=== PATIENT | male | born 1970 | race Caucasian/White ===

== ENCOUNTER → 2024-08-05 13:05 | Outpatient (REF) | payer OTHER, SELFPAY | LOC: HWRAD 13:05 | PROVIDERS: ATTENDING PHYSICIAN Nurse Practitioner | DX: E78.5 Hyperlipidemia, unspecified (principal); I10 Essential (primary) hypertension; E66.9 Obesity, unspecified | CPT/HCPCS: 75571 ==

== ENCOUNTER 2025-02-06 08:26 | Emergency (ER) | payer OTHER, SELFPAY ==
[2025-02-06] VITALS (7 sets, daily range): BP systolic 126–167; BP diastolic 78–103; BMI 38.9
--- NOTE | 2025-02-06 09:29 | ED.GENMED ---
History of Present Illness
General
Chief Complaint: Headache
Source: patient
Exam Limitations: none
Time Seen by Provider: 02/06/25 08:55
History of Present Illness
History of Present Illness:
See MDM
Past History
Past History
ED Past Medical History: None
ED Past Surgical History: None
Social History
Tobacco: Non-smoker
Alcohol: None
Phy Exam
Physical Exam
Physical Exam:
See MDM
Course
Orders/Labs/Results
Orders:
Orders
02/06/25 09:24
Butalb/Acetaminophen/Caffeine [Fioricet] 1 tab PO NOW STA
02/06/25 09:25
EEG Routine Urgent
Reason for Exam: Left arm twitching
Neurology Consult: DR. HUBER
Vital Signs
Initial and Last Documented VS:
Initial Vital Signs
Temp Pulse Resp BP Pulse Ox
98.6 F 77 16 151/88 98
02/06/25 08:30 02/06/25 08:30 02/06/25 08:30 02/06/25 08:30 02/06/25 08:30
Last Documented Vital Signs
Temp Pulse Resp BP Pulse Ox
98.6 F 69 20 152/92 99
02/06/25 09:30 02/06/25 12:00 02/06/25 10:03 02/06/25 12:00 02/06/25 12:00
MDM/Problems Addressed
Differential Diagnosis Includes:
Note:
CHIEF COMPLAINT(S)
Severe headaches with left-sided pain and swelling of the left hand.
HISTORY OF PRESENT ILLNESS
The patient is a 54-year-old male who presented with severe headaches that began a couple of Wednesdays ago. These headaches were described as massive, with shooting, pulsating pains extending down the left side of the body. The patient, who had
never experienced a headache before, initially sought treatment at an emergency room in [place] after fearing a cardiovascular event. Diagnostic tests, including electrocardiogram, blood work, and computed tomography scans of the head and neck,
were conducted, revealing a possible sinus infection or migraine headaches. The patient was discharged and prescribed medications, likely including a steroid, and advised to follow up.
Despite the initial treatment, the patient continued to experience intense headaches described as gripping in nature, along with swelling in the left hand, which led to another emergency visit at [facility]. During this visit, the
patient spent 30 hours in the emergency room, received another CT scan, and attempted an MRI that was not completed due to claustrophobia. A neurology oracle application consultant suggested migraine or tension headaches and prescribed medications including gabapentin
and indomethacin for symptom management. However, the patient experienced hand swelling, potentially as a reaction either from medication or IV access. A sonogram ruled out blood clots.
The patients symptoms persist, with headaches becoming worse over the weekend and continuing despite ongoing medication therapy. The patient reports neck tenderness, describing the headache as originating from this area. Previous surgical history
includes back surgery performed approximately 30 years ago.
After reviewing past treatment and in the context of the patients persistent symptoms, a potential plan discussed involves evaluation by EEG to rule out atypical seizures and trial of a different medication, Fioricet, for migraine management.
PAST MEDICAL AND SURGICAL HISTORY
History of back surgery approximately 30 years ago.
EXTERNAL RECORDS REVIEWED
Records from prior ER visits, including results from CT scans, were reviewed and indicated no significant findings suggestive of acute intracranial pathology. This includes a CT angiogram that was negative for aneurysms.
MEDICATIONS
The patient is currently taking Cefdinir, Gabapentin, and Indomethacin. Valproic Acid was administered previously but caused hand swelling. The patient plans to trial Fioricet under the current plan.
REVIEW OF SYSTEMS
- Neurological: Severe headaches, primarily left-sided. Reported neck tenderness.
- Musculoskeletal: Swelling and involuntary twitching in the left hand.
- Respiratory: No respiratory complaints reported.
PHYSICAL EXAM
General: Alert, no acute distress.
Skin: Warm, dry.
Head: Normocephalic, atraumatic. No tenderness to palpation of temporal arteries
Neck: supple, trachea midline.
Eyes, Ears, Nose, Mouth, and Throat: Oral mucosa moist.
Cardiovascular: No signs of cyanosis
Respiratory: Respirations are non-labored.
Abdomen: Non-distended
Musculoskeletal: No deformities
Neurological: No focal neurological deficit observed. Patient moving both hands without difficulty. Muscle strength appears to be intact. Intermittent twitching noted to left arm
Psychiatric: Cooperative, appropriate mood and affect.
PROBLEM LIST
Acute Problems:
- Severe headaches with left-sided pain.
- Swelling and twitching of the left hand.
Chronic Problems:
- History of back surgery.
PLAN
- Perform an EEG to rule out seizure activity.
- Trial Fioricet for management of migraine headache symptoms.
- Continue monitoring for any progression of symptoms or new symptoms, particularly relating to the neurological examination.
DIFFERENTIAL DIAGNOSIS
The Differential Diagnosis includes, in no particular order and is not limited to:
- Migraine headaches
- Tension headaches
- Cervicogenic headache
- Radiculopathy
- Peripheral neuropathy
- Vascular headache such as temporal arteritis
- Cervical spondylosis with possible root compression
- Seizure disorder
- Medication-induced headache
- Sinusitis and related headache
02/06/25 - 11:02
Patient reports significant improvement in teeth discomfort. Currently connected to EEG monitor; awaiting results for further evaluation.
SUMMARY OF ENCOUNTER
The patient was seen in the emergency department for severe headaches with left-sided pain and swelling of the left hand. The EEG results indicated no seizure-like activity. The patient�s headache has shown significant improvement with the current
management plan. Based on the evaluation and discussions, the patients condition may likely be due to muscle spasms, although radiculopathy was also considered. An outpatient MRI was discussed but deferred for evaluation by the primary care
physician.
DISPOSITION
Discharge.
ASSESSMENT
The patient exhibits headache improvement, with negative EEG findings for seizure-like activity. Muscle spasm is strongly suspected, with possible radiculopathy to be evaluated further in an outpatient setting.
PLAN
Prescribe Fioricet for further migraine management. Prescribe diclofenac sodium for pain relief, possibly related to muscle spasm. Continue to monitor symptoms and follow up with the primary care physician for further evaluation, especially
regarding radiculopathy and consideration of an MRI.
PATIENT EDUCATION AND COUNSELING
The patient was informed that their headaches have improved considerably and discussed the potential for muscle spasms contributing to symptoms. They were advised on the medications prescribed and encouraged to follow up with their primary care
physician for further investigation of potential radiculopathy and consideration of an MRI.
FOLLOW-UP INSTRUCTIONS
The patient was instructed to follow up with their primary care doctor for further evaluation of radiculopathy and to consider an MRI.
MEDICATION RECONCILIATION
Prescriptions provided include Fioricet for migraine management and diclofenac sodium for pain relief.
MEDICAL DECISION MAKING
1. Number and Complexity of Problems Addressed: Chronic conditions affecting care include the history of back surgery approximately 30 years ago, severe headaches with left-sided pain, and swelling of the left hand. Differential diagnoses considered
were migraine headaches, tension headaches, cervicogenic headache, radiculopathy, peripheral neuropathy, vascular headache such as temporal arteritis, cervical spondylosis with possible root compression, seizure disorder, medication-induced
headache, and sinusitis.
2. Data:
Category 2: External records were reviewed, which included EEG results indicating no seizure activity.
3. Risk: Prescription medication was prescribed for continued management of symptoms, notably Fioricet and diclofenac sodium.
DIAGNOSIS
- Muscle spasm, possibly contributing to headaches (G44.209).
- Migraine improvement, primarily managed with prescribed medications (G43.909).
- Swelling and twitching in the left hand, possibly related to radiculopathy to be evaluated (R60.9, G56.90 for unspecified radiculopathy).
*Pulse Oximetry
SaO2: 98
Oxygen Mode of Delivery: Room air
Patient hypoxic: no
*Critical Care Note
Total Time (30-74mins, 75-104mins- exclusive of procedures): Not Applicable
ED Attending Note
-
Portions of this chart may have been created with voice recognition software.� Occasional wrong word or��sound alike� substitutions may have occurred due to the inherent limitations of voice recognition software.
Discharge Plan
Departure
Patient Disposition: Home (Routine Discharge)
Date of Disposition: 02/06/25
Time of Disposition: 12:09
Patient with high blood pressure during this ER visit?: Yes
Discharge Problem:
Migraine
Instructions: Migraines (DC), BLOOD PRESSURE
Prescriptions:
New
diclofenac sodium 75 mg tablet,delayed release (DR/EC)
75 mg PO BID PRN (Reason: Pain) Qty: 20 0RF
atqtbfontx-knvgxokusrymg-squp [Fioricet] 50-300-40 mg capsule
1 cap PO TID PRN (Reason: headache) Qty: 20 0RF
Referrals:
Shannan Fuentes CRNP [Family Provider]
Activity Restrictions/Additional Instructions:
Please return for any worsening symptoms.
You may return at any time if you have further concerns.
Please follow up with your doctor at the first available appointment, preferably this week. Please discuss whether or not to go forward with an MRI of your neck to further evaluate your left arm discomfort.
Please take the diclofenac sodium twice a day for the next few days. Please take the Fioricet up to 3 times a day as needed for headache.
Thank you for choosing [facility].
Interventions
Interventions:
*Risk Screen - Suicide Last Done: 02/06/25 08:30
*General Assessment Last Done: 02/06/25 09:30
*Neglect/Abuse Screening Last Done: 02/06/25 08:30
*ED- Fall Risk Assessment Last Done: 02/06/25 09:30
*ED COVID-19 Vaccine History Last Done: 02/06/25 09:30
ED- Neurological Assessment Last Done: 02/06/25 09:30
Discharge Date and Time
Print Language: MEXICAN
[2025-02-06] MEDS: FIORICET 1 TAB PO (09:52)
--- NOTE | 2025-02-06 11:36 | EEG.RPT ---
Electroencephalogram Report
Recording
Date of EE02/06/25
Type of EEG: Routine
Length of EEG recordin minutes
Done with Video Recording: Yes
Patient Status: Emergency Room
Recording Conditions: Awake and Drowsy
Hyperventilation Performed: No
Photic Stimulation Performed: Yes
Report
LESS THAN 1 HOUR EEG INTERPRETATION:
Unremarkable EEG for age
CLINICAL CORRELATION:
A normal EEG does not rule out a diagnosis of epilepsy. If clinical suspicion for seizure persists, a prolonged recording may be warranted.
Clinical correlation is advised.
METHODS:
A 21 channel digitized electroencephalogram (EEG) was performed using the 10/20 international system of electrode placement and one-lead of ECG recorded. The [employer] quantitative EEG system was utilized.
ELECTROENCEPHALOGRAPHER IMPRESSION(S):
Quality of study
Good
Background
There was an unremarkable anterior-posterior voltage gradient of alpha frequency.
With eye opening the background activity changed to a low voltage mixture of frequencies.
There were no significant asymmetries of background activity noted.
Sleep
Drowsiness present
Photic Stimulation
No activation
ECG
Normal sinus rhythm
== END 2025-02-06 12:54 | disposition home or self-care (01) ==
LOC: EMR 08:26
PROVIDERS: EMERGENCY PHYSICIAN Student in an Organized Health Care Education/Training Program; FAMILY PHYSICIAN Nurse Practitioner
DX: G43.909 Migraine, unspecified, not intractable, without status migrainosus (principal)
CPT/HCPCS: 99284; 95816

== ENCOUNTER 2025-02-25 23:14 | Observation (INO) | payer OTHER, SELFPAY ==
[2025-02-25 18:15] VITALS: BP 157/86
[2025-02-25 19:15] VITALS: BP 139/79; BMI 37.4
--- NOTE | 2025-02-25 19:45 | ED.GENMED ---
History of Present Illness
General
Chief Complaint: Swelling
Source: patient
Exam Limitations: none
Time Seen by Provider: 02/25/25 19:26
History of Present Illness
History of Present Illness:
Patient presents with swelling and slight tightness of the left leg. Started 2 days ago with the pain in his left hamstring. This was followed by swelling which he noted later in the day. Has been swollen for the weekend. He was able [place] go to
[place] and walk about 12 miles per the patient. However concerned about the tightness and swelling. No chest pain or shortness of breath. Recent evaluation here and at other facilities for headaches. He has had multiple CT CTAs
evaluations by neurology with no apparent serious etiology found. These have been improving.
Past History
Past History
ED Past Medical History: HTN and NIDDM
ED Past Surgical History: Orthopedic
Social History
Tobacco: Non-smoker
Alcohol: None
Phy Exam
Physical Exam
Physical Exam:
GENERAL: Alert and oriented in no apparent distress
CARDIAC: Regular rate and rhythm
LUNGS: No respiratory distress
ABDOMEN: Soft, without focal tenderness or distention. Reducible periumbilical hernia
NEUROLOGICAL: Alert and oriented , grossly non-focal
SKIN: Warm and dry, no rash or lesion, no discoloration, skin intact.
MUSCULOSKELETAL: Moderate edema mostly below the knee on the left. Knee appears stable. No warmth or erythema. No cord. No calf tenderness. Thigh appears normal. Joints are normal. Good distal pulses and color
PSYCH: Normal and appropriate interaction.
Scores
Heart Failure Risk
Heart Failure Risk Score: Not Applicable
Course
Orders/Labs/Results
Orders:
Orders
02/25/25 18:18
US Periph Venous LOWER Ext LT Urgent
Comment:
Reason For Exam: swelling
02/25/25 21:13
IV Insert/Care/Rem.- Treatment PRN
02/25/25 21:38
Basic Metabolic Panel Urgent
Complete Blood Count/With Diff Urgent
PTT Urgent
Prothrombin Time Urgent
02/25/25 22:09
Heparin 10,000 units IV NOW STA
Nursing to Place Non Medication Order As Directed
Physician Order: PTT 6 hours after initial start of Heparin infusion
02/25/25 22:15
Heparin 20269 Units/250 ml 25,000 units in 250 ml IV PER PROTOCOL
Weight to be used for heparin protocol in kilograms (kg):: 128.6
Protocol:: DVT/PE
PTT Goal Range to be used:: PTT 73 to 111 seconds
Order type:: Initial
INITIAL Infusion Dose (UNITS/KG/hr) & then follow protocol:: 18 units/kg/hr
Infusion Dose in UNITS/hr & then follow protocol (UNITS/hr):: 2,000
INFUSION RATE in mL/hr & then follow protocol (mL/hr):: 20
For DVT/PE algorithm, re-bolus for low PTT?: Yes
PTT less than or equal to 64 seconds:: Re-bolus 80 units/kg (max 10,000units). Increase by 500 units/hr
(+ 5mL/hr)
PTT 64.1 to 72.9 seconds:: Re-bolus 40 units/kg (max 5,000 units). Increase by 300 units/hr
(+ 3mL/hr)
PTT 73 to 111 seconds:: Target Range. No change in rate.
PTT 111.1 to 130.9 seconds:: Decrease rate by 300 units/hr (- 3 mL/hr)
PTT 131 to 199.9 seconds:: HOLD for 1 hr. Then decrease by 400 units/hr (- 4mL/hr)
PTT greater than or equal to 200 seconds:: HOLD for 2 hrs & Notify Provider. Then decrease by 500 units/hr
(- 5mL/hr)
Lab follow-up:: Each change, PTT q6h until 2 consecutive are therapeutic. Then
PTT daily.
02/25/25 22:24
Heparin 10,000 units IV PRN PRN
Heparin 5,000 units IV PRN PRN
Abnormal Lab Results
02/25/25
21:38
RBC 3.67 L 10^6/uL
(4.70-6.10)
Hgb 11.3 L g/dL
(13.0-18.0)
Hct 34.0 L %
(39.0-52.0)
PT 15.8 H Sec
(11.4-14.6)
Chloride 109 H mmol/L
(98-107)
BUN 35 H mg/dl
(9-20)
Glucose 110 H mg/dl
(70-99)
02/25/25 21:38
02/25/25 21:38
Vital Signs
Initial and Last Documented VS:
Initial Vital Signs
Temp Pulse Resp BP Pulse Ox
97.5 F 97 18 157/86 98
02/25/25 18:15 02/25/25 18:15 02/25/25 18:15 02/25/25 18:15 02/25/25 18:15
Last Documented Vital Signs
Temp Pulse Resp BP Pulse Ox
97.5 F 86 15 128/75 97
02/25/25 18:15 02/25/25 21:17 02/25/25 21:17 02/25/25 20:00 02/25/25 21:17
MDM/Problems Addressed
Differential Diagnosis Includes:
Previous records reviewed. Clinically stable and nontoxic. Likely either DVT versus Norwood's cyst. Nothing to support an infectious issue. The fact that this is left-sided I think is a coincidence compared to his recent headaches and neurologic
issues. ReSound pending
*Radiology
Radiology exam reviewed: radiology read reviewed (DVT left lower extremity)
*Pulse Oximetry
SaO2: 98
Oxygen Mode of Delivery: Room air
Patient hypoxic: no
*Critical Care Note
Total Time (30-74mins, 75-104mins- exclusive of procedures): Not Applicable
Update Note
Update Note:
Patient with a occlusive DVT left lower extremity. In addition has had ongoing neurologic symptoms for the last month of headaches some left arm symptoms. He had an ultrasound of left arm done for swelling that was transient. I cannot put these
issues together and they are not a contraindication anticoagulation however somewhat of a coincidence if they are not somehow related. Given these issues we will admit the patient for heparin and further workup
ED Attending Note
-
Portions of this chart may have been created with voice recognition software.� Occasional wrong word or��sound alike� substitutions may have occurred due to the inherent limitations of voice recognition software.
Discharge Plan
Departure
Patient Disposition: Admit
Date of Disposition: 02/25/25
Time of Disposition: 22:11
Presentation/result/management discussed w/ accepting MD/DO: Hospitalist
Discharge Problem:
Left lower extremity DVT, Ongoing headaches
Prescriptions:
No Action
atorvastatin 40 mg Tablet
40 mg PO DAILY
glipizide 10 mg Tablet Extended Release 24hr
10 mg PO DAILY
lisinopril 20 mg Tablet
20 mg PO DAILY
pioglitazone 45 mg Tablet
45 mg PO DAILY
amlodipine 5 mg Tablet
5 mg PO DAILY
metformin 1,000 mg Tablet
1,000 mg PO BID
metoprolol tartrate 25 mg Tablet
25 mg PO DAILY
Mounjaro 7.5 mg/0.5 mL Pen Injector
7.5 mg SC QWEEK
Referrals:
Shannan Fuentes CRNP [Family Provider]
Interventions
Interventions:
*Risk Screen - Suicide Last Done: 02/25/25 18:15
*General Assessment Last Done: 02/25/25 18:15
*Neglect/Abuse Screening Last Done: 02/25/25 19:17
*ED COVID-19 Vaccine History Last Done: 02/25/25 18:15
ED- Cardiac Assessment Last Done: 02/25/25 19:17
ED- Pulmonary Assessment Last Done: 02/25/25 19:17
ED-Skin Assessment Last Done: 02/25/25 19:17
Discharge Date and Time
Print Language: CZECH
[2025-02-25 20:00] VITALS: BP 128/75
[2025-02-25 21:50] LABS: Hematocrit 34.0 % (39.0-52.0); Hemoglobin 11.3 g/dL (13.0-18.0); Mean Corp Hgb Conc. 33.2 g/dL (33.0-37.0); Mean Corpuscular Volume 92.6 fL (80.0-94.0); Nucleated Red Blood Cells % 0 % (-); Platelet Count 145 10^3/uL (130-400); Red Cell Dist. Width 12.6 % (11.5-14.5)
[2025-02-25 21:57] LABS: INR 1.23; PT 15.8 Sec (11.4-14.6)
[2025-02-25 21:58] LABS: APTT 34.4 Sec (23.4-35.0)
[2025-02-25 22:00] VITALS: BP 147/84
[2025-02-25 22:16] LABS: Blood Urea Nitrogen 35 mg/dl (9-20); Calcium 9.2 mg/dl (8.4-10.2); Carbon Dioxide 26 mmol/L (22-30); Chloride 109 mmol/L (98-107); Estimated Creatinine Clearance 89 ml/min; Glucose 110 mg/dl (70-99); Potassium 4.1 mmol/L (3.5-5.1); Sodium 140 mmol/L (135-145); eGFR > 60.00
--- NOTE | 2025-02-25 22:17 | HPS.HSE ---
Family Physician
-
Family Physician: RE Andersen
Chief Complaint
-
Left lower extremity swelling
History of Present Illness
This is a 54-year-old male with past medical history significant for the, hypertension, hyperlipidemia presenting to the emergency department with left lower extremity swelling.
Patient reported that he had some left-sided hamstring discomfort on Thursday. The following morning he noticed the swelling of his left lower extremity. Did go up with family and when he came back he noticed that the swelling has gotten worse and
he continued to have discomfort in his left lower extremity. Again reports mild numbness. He also reports mild bilateral feet tingling which has been present prior. He denies any acute injuries. Patient reported that he had a plane flight to
[place] about a month ago which was [address] He denies any prior history of blood clots. He reports family history of aneurysm in second-degree relative as well as a brain tumor in a second-degree relative.
Patient reported that for the last 1 month he has been having a headache which is left-sided and associated with shooting sensation down the left side of his body as well as some tingling in his hand. He was initially treated for migraine headaches
but is now currently on analgesic for tension headache. Patient reports that the headache is much improved compared to his initial presentation a month ago but is still present.
ER workup which included CT of the head with CT angio of the head and neck which shows no occlusive disease. There was no aneurysm or dissection. He failed an MRI due to anxiety but he remains very anxious due to recent headache and now dvt.
In the emergency department he was afebrile, blood pressure was 130/75 with a pulse rate of 56 and was satting at 7% on room air. CBC was normal. Electrolytes BUN/creatinine were in the normal range.
Ultrasound of the lower extremity shows occlusive DVT with thrombus extending contiguously from the mid left femoral vein through the popliteal vein and also involving the posterior tibial and peroneal veins.
Medical History
Past Medical History
Past Medical History: Reports HTN, Hypercholesterolemia and NIDDM
Past Surgical History: Reports Orthopedic (remote spine surgery)
Social History
Tobacco: Non-smoker
Alcohol: None
Drug: None
Living: With Family
Employment: Employed
Family History
Family History: Not pertinent
Allergies / Home Medications
Allergies reflects when Allergies were last updated in [facility].
Home Medications with original date entered in [facility]
Allergy/Medication List:
Allergies
Allergy/AdvReac Type Severity Reaction Status Date / Time
No Known Allergies Allergy Verified 02/25/25 18:18
Home Medications
amlodipine 5 mg tablet 5 mg PO DAILY 02/25/25
atorvastatin 40 mg tablet 40 mg PO DAILY 02/25/25
glipizide 10 mg tablet, extended release 24 hr 10 mg PO DAILY 02/25/25
lisinopril 20 mg tablet 20 mg PO DAILY 02/25/25
metformin 1,000 mg tablet 1,000 mg PO BID 02/25/25
metoprolol tartrate 25 mg tablet 25 mg PO DAILY 02/25/25
pioglitazone 45 mg tablet 45 mg PO DAILY 02/25/25
tirzepatide 7.5 mg/0.5 mL subcutaneous pen injector (Mounjaro) 7.5 mg SC QWEEK 02/25/25
Review of Systems
-
History Source: Patient
Constitutional: Reports No Symptoms
EENT: Reports No Symptoms
Respiratory: Reports No Symptoms
Cardiac: Reports No Symptoms
Abdomen/GI: Reports No Symptoms
: Reports No Symptoms
Musculoskeletal: Reports No Symptoms
Skin: Reports No Symptoms
Neurological: Reports Headache
Endocrine: Reports No Symptoms
Hematologic/Lymphatic: Reports No Symptoms
Psych: Reports No Symptoms
Physical Exam
Vital Signs
Vital Signs
Temp Pulse Resp BP Pulse Ox
97.5 F 86 15 128/75 97
02/25/25 18:15 02/25/25 21:17 02/25/25 21:17 02/25/25 20:00 02/25/25 21:17
Physical Exam
General: Well Developed, Well Nourished and No Apparent Distress
HEENT: NormoCephalic, Moist mucous membranes and Atraumatic
Respiratory: Clear
Cardiac: S1/S2 and Regular Rhythm; No Murmur or Rub
GI: Soft, Non Tender, Non Distended and Normal Bowel Sounds; No Organomegaly
Rectal: Deferred by Provider
Musculoskeletal: No Clubbing, No Cyanosis and Edema, Left Lower Extremity
Skin: No Rash
Neuro: AO x 3 and Nonfocal/grossly intact
Laboratory Results
-
02/25/25 21:38
02/25/25 21:38
Data Reviewed
-
Ultrasound: Report Reviewed by me
Lab Data: Labs Reviewed by me
Impression/Plan
-
IMPRESSION:
54-year-old with hypertension, hyperlipidemia, diabetes who presents to the emergency department with left lower extremity swelling and found to have an occlusive DVT that is extending continuously from the mid left femoral vein to the popliteal
vein and also involving the posterior tibial and peroneal veins. No cerulea dolens on physical examination. Denies any chest pain shortness of breath or dyspnea on exertion. Hemodynamically stable. Admitting in part due to extent of DVT and
patients anxiety about his headache and correlating this with the blood clot.
PLAN:
Occlusive DVT - 3 hour flight to [place] and back 1 month ago but no other provoking findings. No family hx
- admit to med/surg
- started on heparin gtt
- oral AC if stable tomorrow
- hematology consultation for non-provoked DVT
- routine outpatient cancer screening
Headaches - Likely tension headache and unlikely related to DVT. However new onset headache in age > 50 does leave concern for malignancy and w/u was not completed.
- MRI brain with anxiolytic
- patient already had negative ESR/CRP on outpatient studies
- negative head CT/CT angio H&N on outpatient studies
- continue analgesics for his headaches for now
DM II
- continue metformin/glipizide/pioglitazone
HTN
- contniue lisinopril/metoprolol
DVT PPX - Lovenox Sq
Code Status - Full Code
[2025-02-25] MEDS: HEPARIN 25000 UNITS/250 ML IV (22:35)
[2025-02-25] MEDS: HEPARIN 10000 UNITS IV (22:37)
[2025-02-25 23:00] VITALS: BP 159/77
[2025-02-26 01:05] VITALS: BP 139/78; BMI 37.4
[2025-02-26] MEDS: TYLENOL 650 MG PO ×3 (01:33→12:49)
[2025-02-26 02:00] VITALS: PULSE 83
[2025-02-26] MEDS: TYLENOL PO (03:55)
[2025-02-26 05:07] LABS: Hematocrit 36.2 % (39.0-52.0); Hemoglobin 12.2 g/dL (13.0-18.0); Mean Corp Hgb Conc. 33.7 g/dL (33.0-37.0); Mean Corpuscular Volume 91.9 fL (80.0-94.0); Platelet Count 146 10^3/uL (130-400); Red Cell Dist. Width 12.5 % (11.5-14.5)
[2025-02-26 05:31] LABS: Blood Urea Nitrogen 26 mg/dl (9-20); Calcium 9.0 mg/dl (8.4-10.2); Carbon Dioxide 24 mmol/L (22-30); Chloride 109 mmol/L (98-107); Estimated Creatinine Clearance > 125 ml/min; Glucose 122 mg/dl (70-99); Potassium 4.0 mmol/L (3.5-5.1); Sodium 139 mmol/L (135-145); eGFR > 60.00
[2025-02-26 05:34] LABS: APTT > 200 Sec (23.4-35.0)
[2025-02-26 07:54] LABS: Glucose - Point of Care 144 mg/dl (70-99)
[2025-02-26 07:55] VITALS: BP 157/86
[2025-02-26] MEDS: LOPRESSOR 25 MG PO (09:51)
[2025-02-26] MEDS: LIPITOR 40 MG PO (09:51)
[2025-02-26] MEDS: ACTOS 45 MG PO (09:51)
[2025-02-26] MEDS: GLUCOTROL XL (EXTENDED RELEASE) 10 MG PO (09:51)
[2025-02-26] MEDS: NORVASC 5 MG PO (09:52)
[2025-02-26] MEDS: ZESTRIL 20 MG PO (09:52)
--- NOTE | 2025-02-26 10:00 | CM ---
Reviewed the chart notes and spoke with the patient at the bedside. The patient is admitted under observational status. The observational letter was provided and explained. The patient had no questions with regards to the letter.
The patient resides with his spouse and daughter in a two story home with no steps to enter. The patient reports only DME is a CPAP machine. The patient reports no VN or SNF in the past. The patient confirmed [facility] choice [facility]. continues to be available to patient/family and is monitoring medical plan for needs at discharge.
Plan: Discharge to home when medically stable. No needs anticipated at this time.
[2025-02-26 12:33] VITALS: BP 158/80
[2025-02-26 12:33] LABS: Glucose - Point of Care 141 mg/dl (70-99)
[2025-02-26] MEDS: XANAX 0.5 MG PO (12:49)
--- NOTE | 2025-02-26 13:48 | W.PN.HOSP.TC ---
Today's Communication/Plan
-
Discharge planning.
Assessment / Plan
Assessment / Plan
Uncomplicated Occlusive DVT
-Patient with 3 hour flight to/from [place] 1 month ago and recent sedentary lifestyle for 1.5 weeks
-Was started on heparin in the ED, plan to transition to oral coagulation today. He will remain on 10mg Eliquis BID for 7 days, then 5mg BID thereafter.
-Hematology was consulted by the admitting team for non-provoked DVT. Cancelled consultation today, patient will follow up as outpatient for hypercoagulable workup
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
-Stable for discharge today
-Will monitor
Headaches
-Patient currently not experiencing headaches, but 1 month history of headaches
-Negative outpatient ESR/CRP
-CT angiogram at [facility] reportedly negative
-MRI ordered by admitting team with Xanax 0.5mg one time order for anxiety. Results pending.
-Continue analgesics
Type 2 diabetes mellitus
-Continue outpatient medications
Essential Hypertension
-Continue outpatient medications
Acute Kidney Injury-Resolved
-Patient with creatinine of 1.3 on presentation, now 0.8
-Continue to monitor
Anticipated Discharge: Today
Subjective/Interval History
-
Date of Service: February 26, 2025
Patient was sitting in his chair today. He reports that his problems began 1 month prior when his headaches began, and that he has been trying to uncover why he is suddenly getting frequent left-sided headaches. He has been given NSAIDs, Steroids
and -triptans without relief. Due to the severity of his symptoms, two weeks ago he stopped playing golf and tried to rest. He noticed left sided hamstring discomfort the day prior to his admission and spent much of the day walking around. He denies
any personal history of blood clots. He is most concerned about his headaches today. He does not currently have a headache at the time of interview.
Objective Data
-
Labs:
Laboratory Results
02/26/25 02/26/25
04:42 13:30
WBC 7.4
Hgb 12.2 L
Hct 36.2 L
Plt Count 146
APTT > 200 H* Pending
Sodium 139
Potassium 4.0
Chloride 109 H
Carbon Dioxide 24
BUN 26 H
Creatinine 0.8
Glucose 122 H
Calcium 9.0
Vital Signs:
Vital Signs
Temp Pulse Resp BP Pulse Ox
98 F 89 18 158/80 98
02/26/25 12:33 02/26/25 12:33 02/26/25 12:33 02/26/25 12:33 02/26/25 12:33
I&O
02/25/25 02/26/25 02/27/25
06:59 06:59 06:59
Intake Total 480 / 480
Balance 480 / 480
Review of Systems
-
History Source: Patient
Respiratory: Denies Cough or Trouble Breathing
Cardiac: Denies Chest Pain or Palpitations
Abdomen/GI: Denies Abdominal Pain, Nausea, Vomiting or Diarrhea
Neuro: Reports Headache (Left temporal, chronic) and Numbness (Left arm, historic); Denies Dizzy or Weakness
Physical Exam
-
General: Well Developed, Well Nourished, No Apparent Distress and Comfortable
HEENT: Normocephalic, Atraumatic, No Ptosis, Nose Appears Normal and Ears Appear Normal
Respiratory: Clear to Auscultation
Cardiac: Regular Rhythm and S1/S2
Musculoskeletal: No Edema
Skin: Warm and Dry
Neuro: Awake, Alert and Oriented
Psych: Calm
--- NOTE | 2025-02-26 14:15 | W.DCSUMMARY ---
Discharge Summary
Discharge Data
Date of Admission: 02/25/25
Date of Discharge: 02/26/25
-
Pending Results: No
Hospital Course
Discharging Physician :Dr. Pond
Disposition : Good
Principal Discharge diagnosis : Occlusive DVT
Chronic Discharge diagnosis : essential hypertension, type II diabetes mellitus, hyperlipidemia, headaches
Hospital Course :
This is a 54 y/o male with pmhx of essential hypertension, type II diabetes mellitus, hyperlipidemia who presented to the ED on 02/26/2025 with lower extremity swelling of his left leg.
These symptoms began on Thursday with left-sided hamstring discomfort. The following morning he first noticed the swelling, which progressed throughout the day and was accompanied by mild numbness. He had no acute injuries precipitating this event.
His only recent travel was a plane flight to [place] 1 month ago (3 hour flight). He has never had a blood clot prior. Aside from this, he has had new-onset left sided headaches that began 1 month prior with associated shooting sensation down the
left side of his body as well as some tingling in his hand. He has taken NSAIDs, steroids and -triptans, with some improvement but still present. By outpatient records, ESR/CRP was within normal limits and outpatient CT of the head with angio showed
no occlusive disease. There was no aneurysm or dissection. He was unable to perform an MRI of the head due to anxiety.
In the ED, he was afebrile with a blood pressure of 130/75 and a pulse of 56. His O2 saturation was 98% on room air. Hemoglobin was 11.3, creatinine was 1.3, BUN was 35. Ultrasound of the lower extremity showed occlusive thrombus extending
contiguously from the mid left femoral vein through the popliteal vein and also involving the posterior tibial and peroneal veins.
On 02/26 he was switched to oral Eliquis. He is to take 10mg twice a day for 7 days total, then switch to 5mg BID thereafter. MRI of the brain showed no acute intracranial abnormalities. He was found to be clinically stable and discharged to home. He
is to follow up with hematology outpatient to workup his hypercoagulable state. He is to follow up with his PCP in 1 week.
Important imaging findings : MRI of the brain showed no acute intracranial abnormalities 02/26/2025
Procedure findings : N/a
Discharge Plan
-
Patient Disposition: Home (Routine Discharge)
Discharge Diagnosis/Procedures: Occlusive DVT
Condition: Good
Diet: No restrictions
Activity: As tolerated
Driving Restrictions: As prior to admission
Bathing Restrictions: None
Referrals:
[facility] [Provider Group, Hematology / Oncology]
Shannan Fuentes CRNP [Family Provider] - in less than 1 week
Additional Discharge Medication Instructions: You were seen at the hospital for a blood clot in your left leg. You were briefly treated with IV Heparin, which is now being transitioned to oral Eliquis today. Please take 10mg of Eliquis twice a day
for 7 days in total (Through to 03/05/2025). After, please take 5mg of Eliquis twice a day. Please contact [facility] to schedule an appointment with a motion picture actor for further evaluation of why you developed a blood clot.
The MRI of your brain showed no acute intracranial abnormalities. We recommend outpatient follow up with your primary care provider to discuss further medical management of your headaches.
Please follow up with your primary care provider in less than 1 week from discharge.
Prescriptions:
New
Eliquis 5 mg tablet
5 mg PO BID Qty: 60 0RF
Eliquis 5 mg tablet
10 mg PO BID Qty: 28 0RF
Continued
atorvastatin 40 mg Tablet
40 mg PO DAILY Qty: 0 0RF
glipizide 10 mg Tablet Extended Release 24hr
10 mg PO DAILY Qty: 0 0RF
lisinopril 20 mg Tablet
20 mg PO DAILY Qty: 0 0RF
amlodipine 5 mg Tablet
5 mg PO DAILY Qty: 0 0RF
metformin 1,000 mg Tablet
1,000 mg PO BID Qty: 0 0RF
metoprolol tartrate 25 mg Tablet
25 mg PO DAILY Qty: 0 0RF
Mounjaro 7.5 mg/0.5 mL Pen Injector
7.5 mg SC QWEEK Qty: 0 0RF
pioglitazone 45 mg Tablet
45 mg PO DAILY Qty: 0 0RF
Discharge Orders:
Discharge Patient (As Directed); Ordered 02/26/25
Ordered By: Estelle Andrews
Discharge Date and Time
Print Language: SINGAPOREAN
[2025-02-26] MEDS: ELIQUIS 10 MG PO (14:41)
[2025-02-26 15:42] VITALS: BP 141/85
== END 2025-02-26 19:57 | disposition home or self-care (01) ==
LOC: 4 EAST ACU 23:14
PROVIDERS: ADMITTING PHYSICIAN Internal Medicine; ATTENDING PHYSICIAN Internal Medicine; EMERGENCY PHYSICIAN Emergency Medicine; FAMILY PHYSICIAN Nurse Practitioner
DX: I82.412 Acute embolism and thrombosis of left femoral vein (principal); I82.432 Acute embolism and thrombosis of left popliteal vein; I82.442 Acute embolism and thrombosis of left tibial vein; I82.452 Acute embolism and thrombosis of left peroneal vein; N17.9 Acute kidney failure, unspecified; J34.1 Cyst and mucocele of nose and nasal sinus; R60.9 Edema, unspecified; R20.0 Anesthesia of skin; R20.2 Paresthesia of skin; E78.00 Pure hypercholesterolemia, unspecified; F41.9 Anxiety disorder, unspecified; M79.652 Pain in left thigh; I10 Essential (primary) hypertension; E11.9 Type 2 diabetes mellitus without complications; R51.9 Headache, unspecified; Z79.84 Long term (current) use of oral hypoglycemic drugs; Z79.85 Long-term (current) use of injectable non-insulin antidiabetic drugs; Z79.899 Other long term (current) drug therapy
CPT/HCPCS: 70551; 80048; 82962; 85025; 85027; 85610; 85730; 93971; 94660; 96365; 96366; 99284; G0378

== ENCOUNTER 2025-03-06 22:18 | Inpatient (IN) | payer OTHER, SELFPAY ==
[2025-03-06] VITALS (11 sets, daily range): BP systolic 99–132; BP diastolic 64–86; BMI 37.1; BMI 37.2
[2025-03-06 15:56] LABS: Hematocrit 37.5 % (39.0-52.0); Hemoglobin 12.4 g/dL (13.0-18.0); Mean Corp Hgb Conc. 33.1 g/dL (33.0-37.0); Mean Corpuscular Volume 92.4 fL (80.0-94.0); Nucleated Red Blood Cells % 0 % (-); Platelet Count 258 10^3/uL (130-400); Red Cell Dist. Width 11.9 % (11.5-14.5)
[2025-03-06] MEDS: NSS 1000 IV (16:26)
[2025-03-06 16:27] LABS: ALT (SGPT) 17 U/L (0-50); AST (SGOT) 21 U/L (17-59); Albumin 3.8 g/dl (3.5-5.0); Alkaline Phosphatase 67 U/L (38-126); Blood Urea Nitrogen 21 mg/dl (9-20); Calcium 9.0 mg/dl (8.4-10.2); Carbon Dioxide 27 mmol/L (22-30); Chloride 105 mmol/L (98-107); Estimated Creatinine Clearance 70 ml/min; Glucose 179 mg/dl (70-99); Potassium 5.0 mmol/L (3.5-5.1); Sodium 137 mmol/L (135-145); Total Protein 6.4 g/dl (6.3-8.2); eGFR 46.73
[2025-03-06 16:32] LABS: Troponin I 0.046 ng/ml
[2025-03-06 19:13] LABS: Troponin I 0.123 ng/ml
--- NOTE | 2025-03-06 20:55 | ED.GENMED ---
History of Present Illness
General
Chief Complaint: Dizziness
Source: patient
Exam Limitations: none
Time Seen by Provider: 03/06/25 15:26
Nursing documentation reviewed up to this point in time: agreed with
History of Present Illness
History of Present Illness:
Note:
CHIEF COMPLAINT(S)
Headaches, weakness, and concern for a recent episode of near syncope.
HISTORY OF PRESENT ILLNESS
The patient is a 54-year-old male presenting with persistent headaches approximately once a month for the past six weeks. The headaches are accompanied by a sensation of weakness and near syncope. The most recent episode occurred while the patient
was golfing, during which he felt as though he was going to pass out but did not lose consciousness. He described the sensation as weakness and seeing 'stars,' necessitating him to brace himself. He attributes the episode to potential dehydration as
it was a marcus day and he perspired significantly.
The patient also reports a history of visiting multiple medical facilities, including [facility] and [facility], due to these headaches. He states he underwent numerous tests, including CT scans, MRIs, laboratory evaluations, and an EEG,
but without relief of symptoms. A recent significant medical event includes the diagnosis of a blood clot after the patient experienced a swollen leg post a lengthy walk at a sports event, for which he was initiated on a blood thinner. Despite these
interventions, he continues to experience pounding sensations in the head, leading him to seek further care today.
The patient denies confusion during the latest episode but felt significantly weak. He reports visual phenomena such as seeing yellow and green when closing his eyes. He is currently feeling better than during the episode and perceives the ability
to walk around without significant dizziness.
EXTERNAL RECORDS REVIEWED
The patient mentions prior imaging and evaluations from [facility], [facility], and [facility] where various diagnostics, including CT scan and MRI, were performed, and recent blood tests were reviewed.
SOCIAL DETERMINANTS AFFECTING HEALTH
The patient denies smoking and alcohol use.
PHYSICAL EXAM
General: Alert, no acute distress.
Skin: Warm, dry.
Head: Normocephalic, atraumatic.
Neck: Supple, trachea midline.
Eye ears, nose, mouth, and throat: Oral mucosa moist.
Cardiovascular: Normal peripheral perfusion, no edema.
Respiratory: Respirations are non-labored.
Gastrointestinal: Abdomen nondistended.
Back: Normal range of motion, normal alignment.
Musculoskeletal: Normal range of motion, normal strength.
Neurological: Alert and oriented to person, place, time, and situation, no focal neurological deficit observed.
Psychiatric: Cooperative, appropriate mood and affect.
PROBLEM LIST
Acute: Headache, Near syncope, Visual phenomena, Swollen leg post-exertion.
Chronic: Blood clot (recently diagnosed).
PLAN
- Administer intravenous fluids to address potential dehydration.
- Review recent imaging and laboratory findings.
- Monitor the effects of blood thinner.
- Consider electrolyte imbalance; assess with laboratory tests.
- Encourage hydration.
DIFFERENTIAL DIAGNOSIS
The Differential Diagnosis includes, in no particular order and is not limited to:
1. Dehydration
2. Migraine
3. Transient Ischemic Attack
4. Hypoglycemia
5. Orthostatic Hypotension
6. Vestibular Disorder
7. Anemia
8. Cardiogenic Syncope
9. Visual Migraine
10. Medication Side Effects
CARE-UPDATE
03/06/25 - 23:11
CT reveals right-sided pulmonary embolism secondary to progression from occlusive DVT. Initiated IV heparin treatment. Consider evaluating for potential cerebrovascular accident (CVA) due to unexplained central nervous system symptoms, possibly
related to eloquist failure or clot progression.
EKG
My independent EKG interpretation is:
- Time of EKG: Not specified
- Rhythm: Normal sinus rhythm
- Heart Rate: 93 bpm
- [place] Interval: Normal
- QRS Duration: Normal
- QT Interval: Normal
- [place]: Normal
- Abnormalities: No signs of ischemia
Disposition:
SUMMARY OF ENCOUNTER
The patient, a 54-year-old male, presented with persistent headaches, a recent episode of near syncope, and concern for dehydration and visual phenomena. He was evaluated and found to have a right-sided pulmonary embolism secondary to progression
from occlusive DVT. Due to the severity of his condition and potential failure of oral anticoagulation therapy, intravenous heparin treatment was initiated. The patients symptoms and history prompted admission for further monitoring and management
by the hospitalist team.
DISPOSITION
Admit to hospitalist service for further management and monitoring.
ASSESSMENT
The patient is assessed as having a right-sided pulmonary embolism, likely due to failure of current oral anticoagulant therapy. There is also the consideration of potential cerebrovascular accident (CVA) due to unexplained central nervous system
symptoms, possibly associated with clot progression despite anticoagulation.
EMERGENCY TREATMENTS ADMINISTERED
Intravenous heparin was administered to address the pulmonary embolism.
INDEPENDENT REVIEW OF LABS AND INTERPRETATION OF TESTS
My independent review of CT reveals a right-sided pulmonary embolism.
MEDICAL DECISION MAKING
-Complexity of Data Reviewed: Chronic conditions affecting care include blood clot post-exertion. Differential diagnosis includes dehydration, migraine, transient ischemic attack, hypoglycemia, orthostatic hypotension, vestibular disorder, anemia,
cardiogenic syncope, visual migraine, and medication side effects.
-Data:
Category 1
Non-emergency department records reviewed, if applicable. External records reviewed include those from [facility] and [facility] where various diagnostics including CT scan, MRI, and laboratory evaluations were previously performed.
Category 2
My independent review of CT shows a right-sided pulmonary embolism.
-Risk:
Consideration of admission/observation: Given the complexity and risk of the patients presenting complaint and exam findings, the patient was admitted for inpatient management under the hospitalist team for further evaluation and to manage the risk
of potential embolic events given the progression of his DVT to a pulmonary embolism.
DIAGNOSIS
- Pulmonary embolism, ICD-10: I26.99
- Possible oral anticoagulant failure, ICD-10: Z92.1
Past History
Past History
ED Past Medical History: HTN and NIDDM
ED Past Surgical History: Orthopedic
Social History
Tobacco: Non-smoker
Alcohol: None
Phy Exam
Physical Exam
Physical Exam:
.
Course
Orders/Labs/Results
Orders:
Orders
03/06/25 15:36
EKG [Electrocardiogram (*1)] Urgent
Reason for Study: Vertigo / Dizzy
03/06/25 15:37
EKG- Treatment ONCE
03/06/25 15:40
Complete Blood Count/With Diff Urgent
Comprehensive Metabolic Panel Urgent
Troponin I Urgent
03/06/25 15:58
Electrocardiogram (*1) Urgent
Reason for Study: Vertigo / Dizzy
EKG- Treatment ONCE
03/06/25 15:59
0.9% Sodium Chloride 1000 ml [Nss] 1,000 ml IV BOLUS
03/06/25 18:31
Troponin I Urgent
03/06/25 19:29
CT Chest PE Study Urgent
Comment:
Reason For Exam: DVT, dx last weak, weak, elevated troponin
03/06/25 20:58
Heparin 10,000 units IV NOW STA
Nursing to Place Non Medication Order As Directed
Physician Order: PTT 6 hours after initial start of Heparin infusion
Above order entered?: Yes
03/06/25 21:00
Heparin 08481 Units/250 ml 25,000 units in 250 ml IV PER PROTOCOL
Weight to be used for heparin protocol in kilograms (kg):: 131
Protocol:: DVT/PE
PTT Goal Range to be used:: PTT 73 to 111 seconds
Order type:: Initial
INITIAL Infusion Dose (UNITS/KG/hr) & then follow protocol:: 18 units/kg/hr
Infusion Dose in UNITS/hr & then follow protocol (UNITS/hr):: 2,000
INFUSION RATE in mL/hr & then follow protocol (mL/hr):: 20
For DVT/PE algorithm, re-bolus for low PTT?: Yes
PTT less than or equal to 64 seconds:: Re-bolus 80 units/kg (max 10,000units). Increase by 500 units/hr
(+ 5mL/hr)
PTT 64.1 to 72.9 seconds:: Re-bolus 40 units/kg (max 5,000 units). Increase by 300 units/hr
(+ 3mL/hr)
PTT 73 to 111 seconds:: Target Range. No change in rate.
PTT 111.1 to 130.9 seconds:: Decrease rate by 300 units/hr (- 3 mL/hr)
PTT 131 to 199.9 seconds:: HOLD for 1 hr. Then decrease by 400 units/hr (- 4mL/hr)
PTT greater than or equal to 200 seconds:: HOLD for 2 hrs & Notify Provider. Then decrease by 500 units/hr
(- 5mL/hr)
Lab follow-up:: Each change, PTT q6h until 2 consecutive are therapeutic. Then
PTT daily.
03/06/25 21:22
PTT Urgent
Comment: Obtain baseline before beginning heparin infusion if not already collected
03/06/25 21:25
Heparin 10,000 units IV PRN PRN
03/06/25 21:26
Heparin 5,000 units IV PRN PRN
03/06/25 21:36
Admit/Transfer Patient As Directed
Co-Sign Provider:
Level of Care: Inpatient admission
Assign to:: Telemetry
Physician / Group: Lonnie
Diagnosis: PE
Reason for Telemetry: Arrhythmia
Date to Stop Telemetry: 03/09/25
Time to Stop Telemetry: 11:00
Reason for Hospitalization: heparin drip
Expected length of stay greater than two midnights?: Yes
ELOS- Estimated Length of Stay in days: 3
I certify the patient meets the requirements for IP care: Yes
PRN Pain Medication Management As Directed
May give lesser potent ordered pain med per pt: Yes
preference::
Protocol:: Medication orders for pain may be administered in a
manner that supports deferring to patient preference
when the pt is:
- Requesting an ordered lesser potent pain medication.
Least to most potent pain medications are defined
as: acetaminophen < NSAID < tramadol < opioids
(morphine, oxycodone, hydromorphone).
- Requesting a lesser dose of the same medication IF
ORDERED.
- Requesting a less intrusive route of administration
if both routes are prescribed by the provider (PO <
IV).
03/06/25 21:37
Code Status As Directed
Resuscitation Status: Full Code
03/06/25 23:55
Troponin I Q6H
03/07/25 04:05
PTT Urgent
03/07/25 05:55
Troponin I Q6H
03/09/25 11:00
DC Protocol for Telemetry ONCE
Abnormal Lab Results
03/06/25 03/06/25 03/06/25
15:40 18:31 21:22
WBC 12.7 H 10^3/uL
(4.8-10.8)
RBC 4.06 L 10^6/uL
(4.70-6.10)
Hgb 12.4 L g/dL
(13.0-18.0)
Hct 37.5 L %
(39.0-52.0)
Abs Immat Gran (auto) 0.1 H 10^3/uL
(0-0.05)
Absolute Neuts (auto) 10.4 H 10^3/uL
(1.4-6.5)
Absolute Monos (auto) 0.7 H 10^3/uL
(0.1-0.6)
Neutrophils % 81.9 H %
(42.2-75.2)
Lymphocytes % 10.4 L %
(20.5-51.1)
APTT 35.4 H Sec
(23.4-35.0)
BUN 21 H mg/dl
(9-20)
Creatinine 1.7 H mg/dL
(0.7-1.3)
Glucose 179 H mg/dl
(70-99)
Troponin I 0.046 H* ng/ml 0.123 H* D ng/ml
03/06/25 15:40
03/06/25 15:40
Vital Signs
Initial and Last Documented VS:
Initial Vital Signs
Temp Pulse Resp BP Pulse Ox
97.9 F 91 14 99/64 99
03/06/25 15:15 03/06/25 15:15 03/06/25 15:15 03/06/25 15:15 03/06/25 15:15
Last Documented Vital Signs
Temp Pulse Resp BP Pulse Ox
98.2 F 89 20 125/86 99
03/06/25 20:29 03/06/25 22:45 03/06/25 22:45 03/06/25 22:00 03/06/25 20:58
*Pulse Oximetry
SaO2: 99
Oxygen Mode of Delivery: Room air
Patient hypoxic: no
*Critical Care Note
Total Time (30-74mins, 75-104mins- exclusive of procedures): 32
comment:
Critical care statement: A total of 32 minutes of critical care time was provided for this patient. This includes management of unstable vital signs, evaluation of the patient at bedside, reviewing the patient's pertinent medical records, discussion
with consultants, review of old EKGs and review of pertinent medical records. This time with separate from time utilized to perform the aforementioned documented procedures
ED Attending Note
-
Portions of this chart may have been created with voice recognition software.� Occasional wrong word or��sound alike� substitutions may have occurred due to the inherent limitations of voice recognition software.
Discharge Plan
Departure
Patient Disposition: Admit
Date of Disposition: 03/06/25
Time of Disposition: 20:56
Admit to: IMU
Presentation/result/management discussed w/ accepting MD/DO: Hospitalist
Patient with high blood pressure during this ER visit?: Yes
Condition: Fair
Discharge Problem:
Pulmonary emboli
Interventions
Interventions:
*Risk Screen - Suicide Last Done: 03/06/25 15:25
*General Assessment Last Done: 03/06/25 15:25
*ED- Fall Risk Assessment Last Done: 03/06/25 15:25
*ED COVID-19 Vaccine History Last Done: 03/06/25 15:25
*ED Influenza Vaccine History Last Done: 03/06/25 15:25
ED- Neurological Assessment Last Done: 03/06/25 15:25
ED Swallowing Screen Last Done: 03/06/25 15:25
[2025-03-06 21:41] LABS: APTT 35.4 Sec (23.4-35.0)
--- NOTE | 2025-03-06 21:42 | HPS.HSE ---
Addendum entered and electronically signed by Elan Fleming DO 03/06/25 22:20:
Patient seen and examined independently. Agree with findings and plan as set forth by Yumiko Alvarez PA-C.
Patient is a 54y M with PMH significant for hypertension, DM-II and recent hospitalization for extensive LLE DVT who presents to ED for evaluation of lightheadedness and dizziness. Patient was started on Eliquis during his recent admission.
Took 10mg BID x 1 week and just started 5mg BID dosing today. Patient states that he went golfing today and developed sudden onset of dizziness / lightheadedness. He denies any LOC / syncope. He denies any chest pain, palpitations or SOB.
Patient was brought to the ED for further evaluation and CT scan here showed PE.
Ass:
RML / RLL Pulmonary Embolism
Extensive LLE DVT
KAMI
Benign Hypertension
DM-II
NURYS on CPAP
Headache / Fatigue
Obesity due to excess calories
Plan:
Admit for further evaluation and treatment.
? Eliquis failure v early increase in activity.
IV heparin for now.
Hematology evaluation for additional recommendations / long-term strategy.
Continue IVFs and follow labs / lytes for improvement.
Hold nephrotoxic medications.
Will need further outpatient follow-up / evaluation of his more chronic / subacute complaints of headaches, fatigue, etc.
Original Note:
Family Physician
-
Family Physician: RE Andersen
Chief Complaint
-
Dizziness
History of Present Illness
Patient is a 54 y/o male past medical history of essential hypertension, hyperlipidemia, diabetes mellitus and recent hospitalization for LLE DVT who presents with dizziness. Patient was found to have an occlusive extending from mid left femoral
vein through popliteal vein and also involving posterior tibial and peroneal veins. He was initially started on heparin drip and then discharged on Eliquis. Patient reports he completed the one week coarse of Eliquis 10mg BID and just started the
5mg dose this morning. Today he was out playing golf today when he developed acute onset of dizziness / lightheadedness. EMS was called and he was brought to the emergency department for evaluation. Work-up revealed evidence of pulmonary embolism.
Hospitalist group was asked to evaluated the patient for admission to the hospital.
Medical History
Past Medical History
Past Medical History: Reports Other
Additional Past Medical History:
Diabetes Mellitus, Type II
Essential Hypertension
Hyperlipidemia
LLE DVT
Obstructive Sleep Apnea
Class II Obesity
Past Surgical History: Reports Other
Additional Past Surgical History:
Back Surgery
Social History
Tobacco: Non-smoker
Alcohol: None
Drug: None
Living: With Family
Employment: Employed
Family History
Family History: Not pertinent
Allergies / Home Medications
Allergies reflects when Allergies were last updated in [employer]
Home Medications with original date entered in [facility] [employer])
Allergy/Medication List:
Allergies
Allergy/AdvReac Type Severity Reaction Status Date / Time
No Known Allergies Allergy Verified 03/06/25 15:24
Home Medications
amlodipine 5 mg tablet 5 mg PO DAILY Heart disease/condition #0 tabs 02/26/25
apixaban 5 mg tablet (Eliquis) 5 mg PO BID Blood clot prevention/tx #60 tabs 02/26/25
atorvastatin 40 mg tablet 40 mg PO DAILY High cholesterol #0 tabs 02/26/25
glipizide 10 mg tablet, extended release 24 hr 10 mg PO DAILY Diabetes #0 tabs 02/26/25
metformin 1,000 mg tablet 1,000 mg PO BID Diabetes #0 tabs 02/26/25
pioglitazone 45 mg tablet 45 mg PO DAILY Diabetes #0 tabs 02/26/25
acetaminophen 325 mg tablet (Tylenol) 650 mg PO Q6HPRN PRN mild pain 03/06/25
alprazolam 0.5 mg tablet (Xanax) 0.5 mg PO BID 03/06/25
cholecalciferol (vitamin D3) 25 mcg (1,000 unit) tablet (Vitamin D3) 25 mcg PO DAILY 03/06/25
lisinopril 40 mg tablet 40 mg PO DAILY 03/06/25
metoprolol succinate 50 mg tablet,extended release 24 hr (Toprol XL) 50 mg PO DAILY 03/06/25
tramadol 50 mg tablet 50 mg PO Q6HPRN PRN moderate pain 03/06/25
Review of Systems
-
History Source: Patient
A 12 point ROS was completed and negative except as noted: Yes
Physical Exam
Vital Signs
Vital Signs
Temp Pulse Resp BP Pulse Ox
98.2 F 94 23 123/81 99
03/06/25 20:29 03/06/25 21:00 03/06/25 21:00 03/06/25 21:00 03/06/25 20:58
Physical Exam
General: Comfortable and Conversant
HEENT: Anicteric and Moist mucous membranes
Respiratory: Clear and Non Labored Respirations
Cardiac: S1/S2 and Regular Rhythm; No Tachycardia
GI: Soft and Non Tender
Rectal: Deferred by Provider
Musculoskeletal: No Clubbing, No Cyanosis and Other (+1 edema left lower extremity which patient reports is significantly improved compared to last week)
Skin: Warm and Dry
Neuro: Awake, Alert, Oriented and Nonfocal/grossly intact
Psych: Calm
Laboratory Results
-
03/06/25 15:40
03/06/25 15:40
Laboratory Results
Total Bilirubin 0.6 mg/dl (0.2-1.3) 03/06/25 15:40
AST 21 U/L (17-59) 03/06/25 15:40
ALT 17 U/L (0-50) 03/06/25 15:40
Alkaline Phosphatase 67 U/L (38-126) 03/06/25 15:40
Troponin I 0.123 ng/ml H* D 03/06/25 18:31
Data Reviewed
-
Lab Data: Labs Reviewed by me
Impression/Plan
-
Pulmonary Embolism, unclear if Eliquis failure vs disruption of clot (patient played 8 holes of golf prior to onset of symptoms)
-Consult Hematology
-Continue heparin drip
-Check Echocardiogram
Non-Ischemic Myocardial Injury
-Continue to trend troponin
Acute Kidney Injury
-Hold lisinopril, and metformin
-Continue IVFs
-Recheck Labs in AM
Diabetes Mellitus, Type II
-Hold oral meds
-Monitor sugars and continue coverage insulin
Essential Hypertension
-Lisinopril on hold due to KAMI
-Continue Toprol and Amlodipine
Hyperlipidemia
-Continue atorvastatin
Obstructive Sleep Apnea
-Continue CPAP - Patient brought from home
Class II Obesity
-Encourage weight loss
-Affects all aspects of care
Code Status: Full Code
[2025-03-06] MEDS: HEPARIN 10000 UNITS IV (22:01)
[2025-03-06] MEDS: HEPARIN 25000 UNITS/250 ML IV (22:05)
[2025-03-07] MEDS: XANAX 0.5 MG PO ×2 (00:41→08:10)
[2025-03-07 00:49] LABS: Troponin I 0.382 ng/ml
[2025-03-07] MEDS: NSS 1000 IV (00:52)
--- NOTE | 2025-03-07 01:28 | PTCARENOTE ---
Received pt from er alert oriented,pt ambulated from stretcher to bed without difficulty.Heparin GTT maintained via left wrist,IVF initiated upon arrival.Physical assessment preformed pt denies pain,denies SOB,afebrile,98% room air,SR cardiac
monitor.Pt applied his own CPAP,sleeping after assessment.
[2025-03-07 03:00] VITALS: BP 119/75
[2025-03-07 05:38] LABS: APTT > 200 Sec (23.4-35.0)
--- NOTE | 2025-03-07 05:52 | PTCARENOTE ---
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
[2025-03-07 06:05] LABS: Troponin I 0.470 ng/ml
[2025-03-07 07:12] VITALS: BP 115/78
[2025-03-07 07:18] LABS: Glucose - Point of Care 117 mg/dl (70-99)
[2025-03-07] MEDS: TOPROL XL 50 MG PO (08:10)
[2025-03-07] MEDS: NORVASC 5 MG PO (08:10)
[2025-03-07] MEDS: NOVOLOG FLEXPEN-MODERATE RESISTANCE SC ×3 (08:10→17:10)
[2025-03-07] MEDS: LIPITOR 40 MG PO (08:10)
--- NOTE | 2025-03-07 10:29 | CON.ONC ---
Consultation
-
Date Consultation Requested: 03/06/25
Date Consultation Performed: 03/07/25
Requesting Provider: GEORGE Felix
Performing Provider: Elisabeth Ariza MD
Reason for Consultation: PE, DVT
Impression
Impression
Extensive LLE DVT, 02/25/25, symptom onset 02/24 (leg pain/swelling), significant worsening the following day after walking 12 miles at [employer] Treated overnight w/ heparin, then transitioned to Eliquis, with loading dose
Acute PE, 03/06/25
Anxiety
Headaches
Plan
Plan
Suspect PE is secondary to small piece of LLE DVT breaking off in the setting of activity (golfing), and not Eliquis failure. However, he reports anxiety in general and anxiety that Eliquis won't work as well as heparin. Therefore, rec. switching to
Lovenox at therapeutic dose (1mg/kg q12h ~ 120mg/dose) for now. He has an appt w/ Dr. Amezcua on 03/22 -- t/c switching back to Eliquis at that time.
Will check antiphospholipid panel, but remainder of thrombophilia panel will be done as outpatient, once it's safe to hold anticoagulation for accurate test results
Await echo
UTD on colonoscopy
Mgmt of anxiety/headache per PCP; rec. neuro eval as outpatient as Xanax isn't a long-term solution for headaches
Patient History
History of Present Illness
This is a 54yo M who first noted left leg discomfort on ThursdayFeb 24. The following day, he drove to [employer] w/ idio for the [employer] golf tournament, and walked 12 miles. His leg swelling worsened and he presented to the ER on 02/25
evening, and LE doppler showed occlusive LLE DVT. He was started on heparin and d/c'd the next day on Eliquis 10mg BID x7 days, followed by 5mg BID, which he recently switched to. He had noted some improvement in leg swelling, worse w/ standing and
as the day went on.
Yesterday he was golfing and noted sudden onset dizziness and dyspnea, and an ambulance was called. W/u in the ER showed PE in the RML and RLL pulmonary arteries. He was admitted and started again on heparin.
He's been struggling with headache and left arm tingling, MRI head at last admission was negative. Xanax from his PCP has helped. He hasn't seen neurology. He's also experiencing anxiety, which is fairly new. He's UTD on colonoscopy, done 1-2 years
ago. No personal or family h/o VTE.
His leg swelling is much better today.
Echo was just done in light of + troponins.
Past-Medical/Surgical History
PMH/PSH - as per the hPI, also DM, hyperlipidemia, remote spine surgery
SH - non smoker,
FH - no VTE
Patient Medication
�Medication �Instructions �Recorded �Confirmed �Last Taken �Type
amlodipine 5 mg tablet 5 mg PO DAILY Heart 02/26/25 03/06/25 03/06/25 Rx
disease/condition #0 tabs
apixaban 5 mg tablet (Eliquis) 5 mg PO BID Blood clot 02/26/25 03/06/25 03/06/25 Rx
prevention/tx #60 tabs
atorvastatin 40 mg tablet 40 mg PO DAILY High cholesterol #0 02/26/25 03/06/25 03/06/25 Rx
tabs
glipizide 10 mg tablet, extended 10 mg PO DAILY Diabetes #0 tabs 02/26/25 03/06/25 03/06/25 Rx
release 24 hr
metformin 1,000 mg tablet 1,000 mg PO BID Diabetes #0 tabs 02/26/25 03/06/25 03/06/25 Rx
pioglitazone 45 mg tablet 45 mg PO DAILY Diabetes #0 tabs 02/26/25 03/06/25 03/06/25 Rx
acetaminophen 325 mg tablet 650 mg PO Q6HPRN PRN mild pain 10/06/25 10/06/25 10/06/25 History
(Tylenol)
alprazolam 0.5 mg tablet (Xanax) 0.5 mg PO BID 03/06/25 03/06/25 03/06/25 History
cholecalciferol (vitamin D3) 25 25 mcg PO DAILY 03/06/25 03/06/25 03/06/25 History
mcg (1,000 unit) tablet (Vitamin
D3)
lisinopril 40 mg tablet 40 mg PO DAILY 03/06/25 03/06/25 03/06/25 History
metoprolol succinate 50 mg 50 mg PO DAILY 03/06/25 03/06/25 03/06/25 History
tablet,extended release 24 hr
(Toprol XL)
tramadol 50 mg tablet 50 mg PO Q6HPRN PRN moderate pain 03/06/25 03/06/25 03/06/25 History
Active Medications
Generic Name Dose Route Start Last Admin
Trade Name Freq PRN Reason Stop Dose Admin
Acetaminophen 650 mg 03/06/25 23:52
Acetaminophen 325 Mg Tablet PO 04/03/25 23:51
Q6HPRN PRN
mild pain
Alprazolam 0.5 mg 03/07/25 08:00 03/07/25 08:10
Alprazolam 0.5 Mg Tablet PO 04/04/25 07:59 0.5 mg
BID STEPHANIE Administration
Amlodipine Besylate 5 mg 03/07/25 08:00 03/07/25 08:10
Amlodipine 5 Mg Tablet PO 04/04/25 07:59 5 mg
DAILY STEPHANIE Administration
Atorvastatin Calcium 40 mg 03/07/25 08:00 03/07/25 08:10
Atorvastatin (Lipitor) 40 Mg Tablet PO 04/04/25 07:59 40 mg
DAILY STEPHANIE Administration
Dextrose 12.5 grams 03/06/25 23:52
Dextrose 50% (0.5 Grams/Ml) 50 Ml Syringe IV 04/03/25 23:51
[id number] PRN
hypoglycemia
Protocol
Glucagon 1 mg 03/06/25 23:52
Glucagon 1 Mg Vial IM 04/03/25 23:51
PRN PRN
hypoglycemia
Protocol
Heparin Sodium 10,000 units 03/06/25 21:25
Heparin 80 Units/Kg Iv Rebolus IV 04/03/25 21:24
PRN PRN
PTT < OR = 64 seconds
Heparin Sodium 5,000 units 03/06/25 21:26
Heparin 40 Units/Kg Iv Rebolus IV 04/03/25 21:25
PRN PRN
PTT = 64.1 to 72.9 seconds
Heparin Sodium 25,000 units in 250 mls @ 0 mls/hr 03/06/25 21:00 03/06/25 22:05
Heparin 16910 Units/250 Ml IV 250 mls
PER PROTOCOL STEPHANIE Administration
Protocol
Per Protocol
Sodium Chloride 1,000 mls @ 100 mls/hr 03/06/25 23:52 03/07/25 00:52
Nss IV 1,000 mls
.Q10H STEPHANIE Administration
Insulin Aspart 0 units 03/07/25 07:30 03/07/25 08:10
Insulin Aspart Moderate Resistance 300 Units/3 Ml Pen.Injctr SC 04/04/25 07:29 Not Given
AC STEPHANIE
Protocol
Metoprolol Succinate 50 mg 03/07/25 08:00 03/07/25 08:10
Metoprolol 50 Mg Extended Release Tablet PO 04/04/25 07:59 50 mg
DAILY STEPHANIE Administration
Sodium Chloride 0 flush 03/06/25 23:00
Sodium Chloride 0.9% (Flush) Syringe IV 04/03/25 22:59
PER PROTOCOL STEPHANIE
Tramadol HCl 50 mg 03/06/25 23:52
Tramadol Hcl 50 Mg Tablet PO 04/03/25 23:51
Q6HPRN PRN
moderate pain
Review of Systems
-
History Source: Patient
All Other Systems: Not reviewed unless documented
Constitutional: Denies Fever
Respiratory: Denies Cough
Physical Exam
-
General: Well Developed, Well Nourished, No Apparent Distress, Comfortable and Conversant; Negative Respiratory Distress or Appears in Distress
HEENT: Negative Jaundice or Moist Mucous Membranes
Extremities: Other (Left leg minimally larger than right); Negative Phlebitic Signs or No C/C/E
Neurology: Non Focal, No Lateralizing Symptoms and No Word Finding Difficulty
Skin: Warm and Dry
Psych: Intact Judgement/Insight and Anxious
Labs
Lab Results
WBC 12.7 10^3/uL (4.8-10.8) H 03/06/25 15:40
RBC 4.06 10^6/uL (4.70-6.10) L 03/06/25 15:40
Hgb 12.4 g/dL (13.0-18.0) L 03/06/25 15:40
Hct 37.5 % (39.0-52.0) L 03/06/25 15:40
MCV 92.4 fL (80.0-94.0) 03/06/25 15:40
MCH 30.5 pg (27.0-31.0) 03/06/25 15:40
MCHC 33.1 g/dL (33.0-37.0) 03/06/25 15:40
RDW 11.9 % (11.5-14.5) 03/06/25 15:40
Plt Count 258 10^3/uL (130-400) 03/06/25 15:40
MPV 9.9 fL (7.4-10.4) 03/06/25 15:40
Abs Immat Gran (auto) 0.1 10^3/uL (0-0.05) H 03/06/25 15:40
Absolute Neuts (auto) 10.4 10^3/uL (1.4-6.5) H 03/06/25 15:40
Absolute Lymphs (auto) 1.3 10^3/uL (1.2-3.4) 03/06/25 15:40
Absolute Monos (auto) 0.7 10^3/uL (0.1-0.6) H 03/06/25 15:40
Absolute Eos (auto) 0.2 10^3/uL (0-0.7) 03/06/25 15:40
Absolute Basos (auto) 0.0 10^3/uL (0-0.2) 03/06/25 15:40
Immature Gran % 0.5 % (0-0.5) 03/06/25 15:40
Neutrophils % 81.9 % (42.2-75.2) H 03/06/25 15:40
Lymphocytes % 10.4 % (20.5-51.1) L 03/06/25 15:40
Monocytes % 5.6 % (1.7-9.3) 03/06/25 15:40
Eosinophils % 1.4 % (0-6) 03/06/25 15:40
Basophils % 0.2 % (0-2) 03/06/25 15:40
Creatinine 1.7 mg/dL (0.7-1.3) H 03/06/25 15:40
Vital Signs
Vital Signs
Temp Pulse Resp BP Pulse Ox
98.1 F 91 18 115/78 96
03/07/25 07:12 03/07/25 07:12 03/07/25 07:12 03/07/25 07:12 03/07/25 07:12
[2025-03-07 10:48] LABS: Glycohemoglobin (HgbA1c) 6.4 % (4.0-5.6)
[2025-03-07 11:16] VITALS: BP 131/77
[2025-03-07 12:09] LABS: Glucose - Point of Care 168 mg/dl (70-99)
--- NOTE | 2025-03-07 12:58 | CM ---
patient seen at bedside
IA completed
Lives with and dtr in 2 story home, [address], flight to second floor
PLOF: Independent, works, drives
DME: CPAP ([employer])
Denies VN/Rehab
PCP: Shannan Brooks
Pharmacy: [facility], [facility] [place], [place]
PLAN: Home, no needs when stable
[2025-03-07] MEDS: NSS IV (13:02)
--- NOTE | 2025-03-07 13:02 | PTCARENOTE ---
Patient refusing to take insulin for BS of 168. Patient states, ' I do not take insulin. I am not taking it now.' RN explained all PO diabetic meds are on hold at present and elevated BS and being managed with insulin.
--- NOTE | 2025-03-07 13:41 | W.PN.HOSP.TC ---
Today's Communication/Plan
-
See plan
Assessment / Plan
Assessment / Plan
Impression
Acute DVT and PE
KAMI
Other conditions
Diabetes type 2
Obesity with BMI of 37
Essential hypertension
Dyslipidemia
Anxiety
Plan
Recent hospitalization with left lower extremity DVT.
At that time initiated on IV heparin and transition to Eliquis
Relatively strenuous activity playing golf developing fatigue, dizziness.
Denies any chest pain or shortness of breath.
Respiratory and hemodynamic status stable upon presentation
CT scan of the chest positive for bilateral pulmonary embolism. No saddle emboli.
Risk factors including obesity, relatively long time for daily driving around 3 hours.
Has been compliant with Eliquis transitioning from loading dose 10 mg twice daily to 5 mg twice daily day prior to presentation.
Also presented with KAMI likely in the settings of dehydration.
Overall improved and feels back to baseline with IV hydration.
Less likely failure of Eliquis
Discussed with hematology.
Will need outpatient workup for hemophilia.
Option is to transition back to Eliquis off IV heparin for alternatively start weight-based Lovenox.
Given KAMI will continue heparin for today with first addition in the morning.
Additional workup with echocardiogram showed preserved biventricular function with no evidence of RV strain or pulmonary hypertension
KAMI.
Suspect in the settings of dehydration, he is not condition.
Monitor closely post IV contrast exposure.
Continue IV fluids
Follow BMP.
Type 2 diabetes.
Obesity with BMI of 37.
Recently on GLP-1 reporting significant weight loss. Held with concern for acute DVT '.
Given KAMI, hold oral medications including pioglitazone, metformin, glipizide.
Insulin basal bolus protocol with serial Accu-Cheks
Carbohydrate controlled diet
Essential hypertension.
Continue metoprolol.
Hold lisinopril given KAMI.
Monitor blood pressure trend.
Headaches.
No neurologic findings
Recent MRI with no acute abnormalities.
Continue Ultram as needed
Anticipated Discharge: 24 - 48 hours
Subjective/Interval History
-
Date of Service: March 07, 2025
Objective Data
-
Labs:
Laboratory Results
03/07/25 03/07/25
05:02 13:25
APTT > 200 H* Pending
Sodium Pending
Potassium Pending
Chloride Pending
Carbon Dioxide Pending
BUN Pending
Creatinine Pending
Glucose Pending
Calcium Pending
Vital Signs:
Vital Signs
Temp Pulse Resp BP Pulse Ox
98.1 F 88 18 131/77 97
03/07/25 11:16 03/07/25 11:16 03/07/25 11:16 03/07/25 11:16 03/07/25 11:16
I&O
03/06/25 03/07/25 03/08/25
06:59 06:59 06:59
Intake Total 1260 / 1260
Balance 1260 / 1260
Physical Exam
-
General: Well Developed and No Apparent Distress
HEENT: Normocephalic, Atraumatic and Moist Mucous Membranes
Respiratory: Clear to Auscultation
Cardiac: Regular Rhythm and S1/S2; Negative Murmur, Rub or Gallop
GI: Soft, Nontender, Nondistended and Normal Bowel Sounds; Negative Organomegaly
Rectal: Deferred by Provider
Musculoskeletal: No Clubbing, No Cyanosis and No Edema
Skin: Negative Rash
Neuro: Nonfocal/Grossly Intact
[2025-03-07 14:02] LABS: APTT 62.8 Sec (23.4-35.0)
[2025-03-07] MEDS: HEPARIN 10000 UNITS IV (14:16)
[2025-03-07 14:20] LABS: Blood Urea Nitrogen 14 mg/dl (9-20); Calcium 9.2 mg/dl (8.4-10.2); Carbon Dioxide 28 mmol/L (22-30); Chloride 105 mmol/L (98-107); Estimated Creatinine Clearance > 125 ml/min; Glucose 137 mg/dl (70-99); Potassium 4.1 mmol/L (3.5-5.1); Sodium 140 mmol/L (135-145); eGFR > 60.00
[2025-03-07] MEDS: HEPARIN 25000 UNITS/250 ML IV (14:22)
[2025-03-07] MEDS: TYLENOL 650 MG PO ×2 (14:26→20:55)
[2025-03-07 15:09] VITALS: BP 115/68
[2025-03-07 17:06] LABS: Glucose - Point of Care 118 mg/dl (70-99)
--- NOTE | 2025-03-07 17:10 | PTCARENOTE ---
Patient c/o headache. Tylenol given with no relief. Patient states, 'The only thing that works is Xanax. My PCP increased my dose to 1mg twice a day.' Patient is requesting dose be increased whie in hspital. Physician made aware.
[2025-03-07 19:35] VITALS: BP 124/75
[2025-03-07] MEDS: XANAX 1 MG PO (20:56)
[2025-03-07 21:27] LABS: APTT > 200 Sec (23.4-35.0)
[2025-03-07 21:53] LABS: Glucose - Point of Care 109 mg/dl (70-99)
[2025-03-07 23:34] VITALS: BP 121/70
[2025-03-08 03:15] VITALS: BP 134/76
[2025-03-08 05:58] LABS: Hematocrit 34.7 % (39.0-52.0); Hemoglobin 12.1 g/dL (13.0-18.0); Mean Corp Hgb Conc. 34.9 g/dL (33.0-37.0); Mean Corpuscular Volume 91.3 fL (80.0-94.0); Nucleated Red Blood Cells % 0 % (-); Platelet Count 239 10^3/uL (130-400); Red Cell Dist. Width 11.8 % (11.5-14.5)
[2025-03-08 06:02] LABS: APTT 81.1 Sec (23.4-35.0)
[2025-03-08 06:28] LABS: Blood Urea Nitrogen 13 mg/dl (9-20); Calcium 9.4 mg/dl (8.4-10.2); Carbon Dioxide 28 mmol/L (22-30); Chloride 106 mmol/L (98-107); Estimated Creatinine Clearance > 125 ml/min; Glucose 137 mg/dl (70-99); Potassium 4.2 mmol/L (3.5-5.1); Sodium 138 mmol/L (135-145); eGFR > 60.00
[2025-03-08] MEDS: HEPARIN 25000 UNITS/250 ML IV (06:30)
[2025-03-08 08:03] VITALS: BP 120/70
[2025-03-08 08:24] LABS: Glucose - Point of Care 168 mg/dl (70-99)
[2025-03-08] MEDS: LIPITOR 40 MG PO (08:26)
[2025-03-08] MEDS: TOPROL XL 50 MG PO (08:26)
[2025-03-08] MEDS: XANAX 1 MG PO (08:26)
[2025-03-08] MEDS: NORVASC 5 MG PO (08:26)
[2025-03-08] MEDS: NOVOLOG FLEXPEN-MODERATE RESISTANCE 1 UNITS SC (08:27)
[2025-03-08 11:31] VITALS: BP 129/76
[2025-03-08 11:51] LABS: Glucose - Point of Care 156 mg/dl (70-99)
[2025-03-08 12:11] LABS: APTT 74.4 Sec (23.4-35.0)
[2025-03-08] MEDS: NOVOLOG FLEXPEN-MODERATE RESISTANCE SC ×2 (12:40→17:13)
--- NOTE | 2025-03-08 12:47 | CM ---
Addendum entered by Julissa Farias 03/08/25 15:50:
patient discharge today
IMM n/a
PLAN: Home, no needs
to transport
Original Note:
Patient seen at bedside
cont Heparin
PLAN: Home, no needs when stable
--- NOTE | 2025-03-08 14:50 | W.DS.TRANS ---
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
-
Discharge Instructions:
Discharge Diagnosis/Procedures DVT/PE
Diet Diabetic, Carb Controlled
Instructions:
Stand-Alone Forms:
Changes to Home Medications: No
Discharge Medications:
DC Medications w/original date entered in [employer]
amlodipine 5 mg tablet 5 mg PO DAILY Heart disease/condition #0 tabs 02/26/25
atorvastatin 40 mg tablet 40 mg PO DAILY High cholesterol #0 tabs 02/26/25
glipizide 10 mg tablet, extended release 24 hr 10 mg PO DAILY Diabetes #0 tabs 02/26/25
metformin 1,000 mg tablet 1,000 mg PO BID Diabetes #0 tabs 02/26/25
pioglitazone 45 mg tablet 45 mg PO DAILY Diabetes #0 tabs 02/26/25
acetaminophen 325 mg tablet (Tylenol) 650 mg PO Q6HPRN PRN mild pain 03/06/25
alprazolam 0.5 mg tablet (Xanax) 0.5 mg PO BID 03/06/25
cholecalciferol (vitamin D3) 25 mcg (1,000 unit) tablet (Vitamin D3) 25 mcg PO DAILY 03/06/25
lisinopril 40 mg tablet 40 mg PO DAILY 03/06/25
metoprolol succinate 50 mg tablet,extended release 24 hr (Toprol XL) 50 mg PO DAILY 03/06/25
tramadol 50 mg tablet 50 mg PO Q6HPRN PRN moderate pain 03/06/25
apixaban 5 mg tablet (Eliquis) 10 mg (2 x 5 mg) PO BID Blood clot prevention/tx #60 tabs 03/08/25
Home Medication Changes
Pending Results: No
[2025-03-08 15:04] VITALS: BP 127/79
[2025-03-08] MEDS: ELIQUIS 10 MG PO (17:13)
[2025-03-10 00:44] LABS: Beta-2-Glycoprotein I Ab. IgG <10 SGU (<=20); Beta-2-Glycoprotein I Ab. IgM <10 SMU (<=20)
== END 2025-03-08 17:40 | disposition home or self-care (01) | DRG 176 ==
LOC: 3 WEST ACU 22:18
PROVIDERS: Internal Medicine Hematology & Oncology; Physician Assistant Medical; ADMITTING PHYSICIAN Hospitalist; ATTENDING PHYSICIAN Internal Medicine; EMERGENCY PHYSICIAN Emergency Medicine; FAMILY PHYSICIAN Nurse Practitioner
DX: I26.99 Other pulmonary embolism without acute cor pulmonale (principal); I5A Non-ischemic myocardial injury (non-traumatic); N17.9 Acute kidney failure, unspecified; I82.402 Acute embolism and thrombosis of unspecified deep veins of left lower extremity; R42 Dizziness and giddiness; I10 Essential (primary) hypertension; E11.9 Type 2 diabetes mellitus without complications; F41.9 Anxiety disorder, unspecified; R51.9 Headache, unspecified; E78.5 Hyperlipidemia, unspecified; E66.812 Obesity, class 2; E86.0 Dehydration; G47.33 Obstructive sleep apnea (adult) (pediatric); Z68.37 Body mass index [BMI] 37.0-37.9, adult; Z79.899 Other long term (current) drug therapy; Z79.84 Long term (current) use of oral hypoglycemic drugs; Z79.01 Long term (current) use of anticoagulants
CPT/HCPCS: 71275; 80048; 80053; 82962; 83036; 84484; 85025; 85610; 85613; 85730; 86146; 86147; 93005; 93306; 96361; 96374; 96376; 99291; Q9967